=== PATIENT | female | born 1995 | race Caucasian/White ===

== ENCOUNTER 2021-05-21 22:38 | Emergency (ER) | payer OTHER ==
[~2021-05-21] VITALS: Ht 160 cm; Wt 77.0 kg
[2021-05-21 23:02] VITALS: BP 134/75
[2021-05-22] MEDS ORDERED: BACITRACIN ZINC OINT UDPKT TOP ONE (00:45)
[2021-05-22] MEDS ORDERED: TETANUS, DIPHTHERIA, PERTUSSIS VAC/PF 0.5ML (>7YR OLD) IM ONE (00:45)
[2021-05-22] MEDS ORDERED: LIDOCAINE HCL/EPINEPHRINE 1%-EPI 1:100,000 20 ML VIAL INFIL ONE (00:45)
[2021-05-22] MEDS ORDERED: ACET-2708 MT (02:29)
== END 2021-05-22 02:57 | disposition home or self-care (01) ==
LOC: ER 22:38
DX: S61.512A Laceration without foreign body of left wrist, initial encounter (principal); E05.90 Thyrotoxicosis, unspecified without thyrotoxic crisis or storm; W25.XXXA Contact with sharp glass, initial encounter; Y93.G1 Activity, food preparation and clean up; Y92.010 Kitchen of single-family (private) house as the place of occurrence of the external cause
CPT/HCPCS: 12002; 73110; 81025; 90471; 90715; 99283; J3490